=== PATIENT | female | born 1990 | race Caucasian/White ===

== ENCOUNTER 2017-02-18 07:16 | Emergency (ER) | payer MEDICAID, OTHER ==
[~2017-02-18] VITALS: Ht 160 cm; Wt 70.4 kg
[2017-02-18 07:27] VITALS: BP 135/71
[2017-02-18] MEDS ORDERED: NACL 0.9% 1,000 ML IV SCH (07:53)
[2017-02-18] MEDS ORDERED: FAMOTIDINE 20 MG/2 ML VIAL IVP ONE (07:55)
[2017-02-18 08:10] LABS: HEMATOCRIT 36.4 % (36-48); HEMOGLOBIN 11.9 g/dL (12.0-16.0); MEAN CORPUSCULAR HEMOGLOBIN 29 pg (27-31); MEAN CORPUSCULAR HGB CONC 33 g/dL (33-37); MEAN CORPUSCULAR VOLUME 87 fL (80-94); PLATELET COUNT (AUTO) 240 K/uL (140-450); RED BLOOD CELL COUNT(AUTO) 4.19 MIL/uL (4.20-5.40); RED CELL DISTRIBUTION WIDTH 12.1 % (11.6-13.7); WHITE BLOOD COUNT (AUTO) 4.1 K/uL (4.8-10.8)
[2017-02-18 08:44] LABS: ANION GAP 12.2 (8-16); CARBON DIOXIDE 27.8 mmol/L (21-32); CREATININE 0.6 mg/dL (0.6-1.3)
[2017-02-18 08:50] LABS: ALBUMIN 3.9 g/dL (3.4-5.0); TOTAL BILIRUBIN 0.3 mg/dL (0.0-1.0); TOTAL PROTEIN, SERUM 7.3 g/dL (6.4-8.2)
[2017-02-18 09:12] LABS: NEUTROPHILS % (MANUAL) 54 (43-65)
[2017-02-18 09:13] LABS: EOSINOPHILS % (MANUAL) 1 % (0-4); LYMPHOCYTES % (MANUAL) 35 % (20-46); MONOCYTES % (MANUAL) 10 % (5-12)
[2017-02-18 09:29] LABS: APPEARANCE,URINE CLEAR (CLEAR); COLOR,URINE YELLOW (YELLOW)
[2017-02-18 09:30] LABS: BILIRUBIN,URINE NEGATIVE (NEGATIVE); BLOOD, URINE NEGATIVE (NEGATIVE); LEUKOCYTE ESTERASE ,URINE NEGATIVE (NEGATIVE); NITRITE, URINE NEGATIVE (NEGATIVE); PROTEIN,URINE NEGATIVE (NEGATIVE); UGLUCOSE NEGATIVE (NEGATIVE); UROBILINOGEN,URINE 0.2 EU/dL (0.2 - 1)
[2017-02-18] MEDS ORDERED: ACETAMINOPHEN EXTRA STRENGTH 500 MG TAB PO ONE (10:10)
[2017-02-18 10:35] VITALS: BP 113/79
== END 2017-02-18 10:35 | disposition home or self-care (01) ==
LOC: MED 07:16
DX: R10.31 Right lower quadrant pain (principal); R10.2 Pelvic and perineal pain
CPT/HCPCS: 36415; 74176; 80053; 81003; 81025; 82150; 83690; 85025; 96361; 96374; 99285; J3490; J7030

== ENCOUNTER 2017-10-15 12:24 | Emergency (ER) | payer OTHER ==
[~2017-10-15] VITALS: Ht 160 cm; Wt 67.1 kg
[2017-10-15 12:30] VITALS: BP 112/76
--- NOTE | 2017-10-15 12:31 | NUR ---
EKG DONE IN TRIAGE.REVIEWED BY OSVALDO
--- NOTE | 2017-10-15 12:48 | NUR ---
PATIENT AMBULATED TO BED #2
--- NOTE | 2017-10-15 12:50 | NUR ---
27Y F BIB FAMILY C/O CHEST PAIN SINCE 0800 THIS MORNING. PT STATES PAIN IS PRESSURE LIKE, NON RADIATING, LEFT UPPER CHEST WALL. PT STATES PAIN IS CONSTANT. WITHOUT ANY N/V/D. PT AAOX4, BREATHING IS UNLABORED AND EVEN. ER MD DR KAPADIA MADE AWARE.
[2017-10-15 15:10] LABS: BASOPHILS % (AUTO) 0.6 % (0.0-2.0); EOSINOPHILS # (AUTO) 0.3 K/uL (0-0.4); EOSINOPHILS % (AUTO) 5.3 % (0.0-4.0); HEMATOCRIT 36.5 % (36-48); HEMOGLOBIN 12.4 g/dL (12.0-16.0); LYMPHOCYTES % (AUTO) 40.1 % (20.5-51.1); MEAN CORPUSCULAR HEMOGLOBIN 29 pg (27-31); MEAN CORPUSCULAR HGB CONC 34 g/dL (33-37); MEAN CORPUSCULAR VOLUME 86.8 fL (80-94); MONOCYTES # (AUTO) 0.2 K/uL (0.8-1.0); MONOCYTES % (AUTO) 4.2 % (1.7-9.3); NEUTROPHILS # (AUTO) 2.5 K/uL (1.8-7.7); NEUTROPHILS % (AUTO) 49.8 % (42.2-75.2); PLATELET COUNT (AUTO) 244 K/uL (140-450); RED BLOOD CELL COUNT(AUTO) 4.21 MIL/uL (4.20-5.40); RED CELL DISTRIBUTION WIDTH 13.9 % (11.6-13.7)
[2017-10-15 15:15] LABS: APPEARANCE,URINE CLEAR (CLEAR); BILIRUBIN,URINE NEGATIVE (NEGATIVE); BLOOD, URINE NEGATIVE (NEGATIVE); COLOR,URINE YELLOW (YELLOW); LEUKOCYTE ESTERASE ,URINE NEGATIVE (NEGATIVE); NITRITE, URINE NEGATIVE (NEGATIVE); PH,URINE 6.5 (5.0-9.0); UGLUCOSE NEGATIVE (NEGATIVE)
[2017-10-15 15:25] LABS: BARBITURATE, URINE NEG. ng/ml (NEG <=200); BENZODIAZEPINE, URINE NEG. ng/mL (NEG <=200); CANNABINOID, URINE NEG. ng/mL (NEG <=50); COCAINE, URINE NEG. ng/mL (NEG <=300); OPIATE, URINE NEG. ng/mL (NEG <=2000); PHENCYCLIDINE SCREEN,URINE NEG. ng/mL (NEG <=25)
[2017-10-15 15:33] LABS: ALBUMIN 4.4 g/dL (3.4-5.0); ANION GAP 14.4 (8-16); CARBON DIOXIDE 27.3 mmol/L (21-32); CREATININE 0.6 mg/dL (0.6-1.3); POTASSIUM 3.7 mmol/L (3.5-5.1); TOTAL BILIRUBIN 0.7 mg/dL (0.0-1.0)
[2017-10-15 16:11] VITALS: BP 119/68
--- NOTE | 2017-10-15 16:11 | NUR ---
Patient discharged with v/s stable. Written and verbal after care instructions given and explained. Patient verbalized understanding. Ambulatory with steady gait. All questions addressed prior to discharge. Advised to follow up with PMD.
== END 2017-10-15 16:11 | disposition home or self-care (01) ==
LOC: MED 12:24
DX: R07.89 Other chest pain (principal); R42 Dizziness and giddiness
CPT/HCPCS: 36415; 71045; 80053; 80305; 81003; 81025; 83690; 84484; 85025; 85379; 99285; Q0092; 93005

== ENCOUNTER 2018-12-29 11:28 | Emergency (ER) | payer OTHER ==
[~2018-12-29] VITALS: Ht 157.5 cm; Wt 68.0 kg
[2018-12-29 11:30] VITALS: BP 124/67
--- NOTE | 2018-12-29 11:30 | NUR ---
BIB SELF. AAO X4 C/O LEFT ANKLE PAIN, AND SWELLING, ABRASION ON HER LEFT KNEE, BLEEDING CONTROLLED S/P HIKING AT 1030 HOURS. PT STATES THAT SHE WAS RUNNING DOWN THE HILL CAUSING HER TO TWIST HER L ANKLE AND LANDED ON HER KNEES. PT DENIES HITTING HEAD. ER TO EVALUATE PT.
--- NOTE | 2018-12-29 11:30 | NUR ---
TO BED # 11 AMBULATORY
--- NOTE | 2018-12-29 11:43 | NUR ---
DR MENDOZA AT BEDSIDE FOR PT EVAL
[2018-12-29] MEDS ORDERED: KETOROLAC 60 MG/2 ML VIAL IM ONE (11:50)
--- NOTE | 2018-12-29 11:50 | NUR ---
RADIOLOGY AT BEDSIDE
[2018-12-29] MEDS ORDERED: BACITRACIN OINT 500 UNITS/GM PKT TP ONE (12:00)
--- NOTE | 2018-12-29 13:20 | NUR ---
PT AMBULATED WITH CRUTCHES--STEADY GAIT
[2018-12-29 13:22] VITALS: BP 119/64
--- NOTE | 2018-12-29 13:22 | NUR ---
Patient discharged with v/s stable. Written and verbal after care instructions given and explained. Patient alert, oriented and verbalized understanding of instructions. Ambulatory with steady gait. All questions addressed prior to discharge. ID band removed. Patient advised to follow up with PMD. Rx of Motrin, [place] given. Patient educated on indication of medication including possible reaction and side effects. Opportunity to ask questions provided and answered.
== END 2018-12-29 13:28 | disposition home or self-care (01) ==
LOC: MED 11:28
DX: S93.402A Sprain of unspecified ligament of left ankle, initial encounter (principal); X50.1XXA Overexertion from prolonged static or awkward postures, initial encounter; Y93.89 Activity, other specified; Y92.89 Other specified places as the place of occurrence of the external cause; Y99.8 Other external cause status
CPT/HCPCS: 73610; 96372; 99283; J1885; Q0092

== ENCOUNTER 2020-03-07 20:40 | Emergency (ER) | payer OTHER ==
[~2020-03-07] VITALS: Ht 157.5 cm; Wt 76.7 kg
[2020-03-07 20:44] VITALS: BP 149/88
--- NOTE | 2020-03-07 21:25 | NUR ---
29 Y/O FEMALE C/O RT RIB PAIN X 2 MNOTHS. RIB PAIN IS PROGRESSIVELY GETTING WORSE THIS PAST MONTH AND IS CONTANT. DENIES ANY TRUAMA OR INJURY. NO OBVIOUS DEFORMITY NOTED. EQUAL CHEST RISE AND FALL. NO DISTRESS NOTED. LUNG SOUNDS CLEAR ALL THROUGHOUT. VSS. A&O X4. STEADY GAIT. 10 PAIN AND DESCRIBES IT SHARP CRAMPING. PT ALSO STATES, "I ALSO FEEL LIKE A BULGING BALL POP OUT AROUND MY RIGHT RIB, AND IT GETS WORSE WITH STRESS OR WHEN IM STRAINING OR USING FORCE." NKDA. PMH: DENIES.
--- NOTE | 2020-03-07 22:08 | NUR ---
BLOOD DRAWN AND GIVEN TO PHLEB TECH.
--- NOTE | 2020-03-07 22:08 | NUR ---
IV 20 GAUGE STARTED ON LAC
--- NOTE | 2020-03-07 22:10 | NUR ---
XR AND US AT [facility].
[2020-03-07 22:29] LABS: BASOPHILS % (AUTO) 0.6 % (0.0-2.0); EOSINOPHILS # (AUTO) 0.5 K/uL (0-0.4); EOSINOPHILS % (AUTO) 7.1 % (0.0-4.0); HEMATOCRIT 36.4 % (36-48); HEMOGLOBIN 12.5 g/dL (12.0-16.0); LYMPHOCYTES # (AUTO) 2.7 K/uL (2.5-16.5); LYMPHOCYTES % (AUTO) 43.3 % (20.5-51.1); MEAN CORPUSCULAR HEMOGLOBIN 30 pg (27-31); MEAN CORPUSCULAR HGB CONC 34 g/dL (33-37); MEAN CORPUSCULAR VOLUME 88.2 fL (80-94); MONOCYTES # (AUTO) 0.4 K/uL (0.8-1.0); MONOCYTES % (AUTO) 6.3 % (1.7-9.3); NEUTROPHILS # (AUTO) 2.7 K/uL (1.8-7.7); NEUTROPHILS % (AUTO) 42.7 % (42.2-75.2); PLATELET COUNT (AUTO) 306 K/uL (140-450); RED BLOOD CELL COUNT(AUTO) 4.13 MIL/uL (4.20-5.40); RED CELL DISTRIBUTION WIDTH 12.5 % (11.6-13.7); WHITE BLOOD COUNT (AUTO) 6.3 K/uL (4.8-10.8)
[2020-03-07 22:48] LABS: ANION GAP 15.7 (8-16); CARBON DIOXIDE 26.3 mmol/L (21-32); CREATININE 0.8 mg/dL (0.6-1.3); TOTAL BILIRUBIN 0.2 mg/dL (0.0-1.0)
[2020-03-07] MEDS ORDERED: KETOROLAC 15 MG/ML VIAL IVP STA ×2 (22:57→23:10)
[2020-03-07 23:57] VITALS: BP 120/72
--- NOTE | 2020-03-07 23:57 | NUR ---
Patient discharged with v/s stable. Written and verbal after care instructions given and explained. Patient alert, oriented and verbalized understanding of instructions. Ambulatory with steady gait. All questions addressed prior to discharge. ID band removed. Patient advised to follow up with PMD. Rx of ibuprofen, and tramadol given. Patient educated on indication of medication including possible reaction and side effects. Opportunity to ask questions provided and answered.
== END 2020-03-07 23:57 | disposition home or self-care (01) ==
LOC: MED 20:40
DX: R10.11 Right upper quadrant pain (principal); R07.9 Chest pain, unspecified
CPT/HCPCS: 36415; 71045; 76705; 80053; 82150; 83690; 84484; 84703; 85025; 93005; 96374; 99285; J1885; Q0092

== ENCOUNTER 2023-01-16 15:10 | Emergency (ER) | payer OTHER ==
[~2023-01-16] VITALS: Ht 160 cm; Wt 75.7 kg
[2023-01-16 15:27] VITALS: BP 134/74; PULSE 83; RESP 16; TEMP 97.9; O2SAT 99
[2023-01-16] MEDS ORDERED: KETOROLAC 60 MG/2 ML VIAL IM ONE (16:40)
[2023-01-16] MEDS ORDERED: CEPH-588 PO (16:48)
[2023-01-16] MEDS ORDERED: IBUP-2213 PO (16:48)
[2023-01-16 17:11] VITALS: BP 134/74; PULSE 83; RESP 16; TEMP 97.9; O2SAT 99
--- NOTE | 2023-01-16 17:34 | NUR ---
PT IN A HURRY TO LEAVE TO GET HOME TO HER KIDS
== END 2023-01-16 17:35 | disposition home or self-care (01) ==
LOC: MED 15:10
DX: N39.0 Urinary tract infection, site not specified (principal); Z79.899 Other long term (current) drug therapy
CPT/HCPCS: 81002; 81025; 87086; 96372; 99283; J1885